=== PATIENT | male | born 1990 | race Two or more races ===

== ENCOUNTER 2025-06-15 16:12 | Emergency (ER) | payer MEDICAID ==
[~2025-06-15] VITALS: Ht 177.8 cm; Wt 73.6 kg
[2025-06-15] MEDS: ACETAMINOPHEN 325 MG TABLET PO ONE (19:12)
[2025-06-15 19:16] VITALS: BP 127/70; PULSE 79; RESP 18; TEMP 97.3; O2SAT 100
== END 2025-06-15 19:21 | disposition home or self-care (01) ==
LOC: EMS 16:12
DX: S02.40AA Malar fracture, right side, initial encounter for closed fracture (principal); S82.831A Other fracture of upper and lower end of right fibula, initial encounter for closed fracture; X50.1XXA Overexertion from prolonged static or awkward postures, initial encounter; Y04.0XXA Assault by unarmed brawl or fight, initial encounter; Y93.89 Activity, other specified; Y92.89 Other specified places as the place of occurrence of the external cause; Y99.8 Other external cause status
CPT/HCPCS: 70486; 99284; 73610-TC; Z7502; Z7610